=== PATIENT | male | born 1955 | race Caucasian/White ===

== ENCOUNTER 2018-12-15 20:10 | Emergency (ER) | payer SELFPAY ==
[2018-12-15 20:19] VITALS: BP 152/81; PULSE 105; TEMP 98.3; BMI 24.3
--- NOTE | 2018-12-15 20:39 | PDOC ---
History of Present Illness - General Chief Complaint: Laceration Stated Complaint: Blood Pressure Problem/FINGER BLEDING NON STOP Time Seen by Provider: 12/15/18 20:23 History Source: Patient - History of Present Illness Timing/Duration: reports: just prior to arrival Location: reports: extremities Past History - Past Medical History Allergies/Adverse Reactions: Allergies Allergy/AdvReac Type Severity Reaction Status Date / Time No Known Allergies Allergy Verified 12/15/18 20:20 COPD: No Diabetes: Yes HTN: Yes Hypercholesterolemia: Yes - Suicide/Smoking/Psychosocial Hx Smoking History: Never smoked Review of Systems - Review of Systems Neurological: No: Numbness *Physical Exam - Vital Signs Last Vital Signs Temp Pulse Resp BP Pulse Ox 98.3 F 105 H 18 152/81 98 12/15/18 20:15 12/15/18 20:15 12/15/18 20:15 12/15/18 20:15 12/15/18 20:15 - Physical Exam General Appearance: Yes: Appropriately Dressed. No: Apparent Distress HEENT: positive: Normal Voice Neck: positive: Supple Respiratory/Chest: negative: Respiratory Distress Extremity: positive: Other (~0.5 cm avulsion lac to distal phalanx of L 5th finger) Integumentary: positive: Dry, Warm Neurologic: positive: Fully Oriented, Alert, Normal Mood/Affect Moderate Sedation - Procedure Monitoring Vital Signs: Procedure Monitoring Vital Signs Temperature 98.3 F 12/15/18 20:15 Pulse Rate 105 H 12/15/18 20:15 Respiratory Rate 18 12/15/18 20:15 Blood Pressure 152/81 12/15/18 20:15 O2 Sat by Pulse Oximetry (%) 98 12/15/18 20:15 Medical Decision Making - Medical Decision Making 12/15/18 20:34 63-year-old male, history of ygn-[id number]-ykhlnatgr diabetes, here with laceration to L 4th digit while handling knife tonight. No sensory changes. Needs tetanus vaccine See exam Avulsion lac to finger -local wound care and compression dressing -tetanus updated -wound check as needed in 2 days *DC/Admit/Observation/Transfer Diagnosis at time of Disposition: Finger laceration Qualifiers: Encounter type: initial encounter Finger: little finger Damage to nail status: without damage Foreign body presence: without foreign body Laterality: left Qualified Code(s): S61.217A - Laceration without foreign body of left little finger without damage to nail, initial encounter - Discharge Dispostion Disposition: HOME Condition at time of disposition: Good - Referrals - Patient Instructions Printed Discharge Instructions: DI for Minor Laceration Additional Instructions: Tiene un tipo de laceracin en la que se sanches eliminado narayan parte de la piel. Carmen tipo de laceracin tanja por s solo. Mientras tanto, se coloc un vendaje para controlar el sangrado. Despus de aproximadamente 24 horas, puede quitar el apsito y reemplazarlo con narayan curita. Regrese a la matt de emergencias para revisar la herida si nota enrojecimiento en la herida, pus o fiebre. Te dieron narayan vacuna hoy Print Language: DANISH - Post Discharge Activity
[2018-12-15] MEDS ORDERED: DIPHTH,PERTUSS(ACELL),TET 0.5 ML DISP.SYRIN IM ONE ×2 (20:40→21:06)
== END 2018-12-15 21:28 | disposition home or self-care (01) ==
LOC: JERFT 20:10
PROC: 3E0234Z Introduction of Serum, Toxoid and Vaccine into Muscle, Percutaneous Approach (ICD-10-PCS; principal; 2018-12-15)
DX: S61.217A Laceration without foreign body of left little finger without damage to nail, initial encounter (principal); W26.0XXA Contact with knife, initial encounter; Y93.89 Activity, other specified; Y92.018 Other place in single-family (private) house as the place of occurrence of the external cause; Y99.8 Other external cause status; E11.9 Type 2 diabetes mellitus without complications; Z79.84 Long term (current) use of oral hypoglycemic drugs
CPT/HCPCS: 90715; 99281-25

== ENCOUNTER 2019-08-10 06:04 | Emergency (ER) | payer OTHER ==
[2019-08-10 07:30] VITALS: TEMP 98.1; BMI 27.9
--- NOTE | 2019-08-10 07:36 | PDOC ---
History of Present Illness - General Chief Complaint: Diarrhea Stated Complaint: ABD PAIN, Time Seen by Provider: 08/10/19 07:32 History Source: Patient - History of Present Illness Initial Comments: 08/10/19 10:14 Mr. Cohen is a 64 y/o English speaking M with hx DM, HTN presenting with one day of abdominal pain. He reports that yesterday at approx 10pm he ate fish for dinner, and shortly after developed severe 8/10 upper abdominal pain and chills. He reports becoming nauseated, no vomiting. He reports approx 6x non bloody watery diarrhea. He did not take any over the counter medications at home to control his symptoms. He denies any sick contacts, or recent travel. PCP: Dr. Sj Farrell Past History - Travel Traveled outside of the country in the last 30 days: No - Past Medical History Allergies/Adverse Reactions: Allergies Allergy/AdvReac Type Severity Reaction Status Date / Time No Known Allergies Allergy Verified 08/10/19 07:38 Home Medications: Ambulatory Orders Metformin HCl [Glucophage] 1,000 mg PO DAILY 08/10/19 COPD: No Diabetes: Yes HTN: Yes Hypercholesterolemia: Yes - Surgical History GI Surgery: Yes - Suicide/Smoking/Psychosocial Hx Smoking History: Never smoked Hx Alcohol Use: No Drug/Substance Use Hx: No Review of Systems - Review of Systems Able to Perform ROS?: Yes Comments:: 08/10/19 11:01 ROS: GENERAL/CONSTITUTIONAL: Chills. No fever. No weakness. HEAD, EYES, EARS, NOSE AND THROAT: No change in vision. No ear pain or discharge. No sore throat. CARDIOVASCULAR: No chest pain or shortness of breath RESPIRATORY: No cough, wheezing, or hemoptysis. GASTROINTESTINAL: Nausea, diarrhea. No vomiting, constipation. GENITOURINARY: No dysuria, frequency, or change in urination. MUSCULOSKELETAL: No joint or muscle swelling or pain. No neck or back pain. SKIN: No rash NEUROLOGIC: No headache, vertigo, loss of consciousness, or change in strength/ sensation. ENDOCRINE: No increased thirst. No abnormal weight change HEMATOLOGIC/LYMPHATIC: No anemia, easy bleeding, or history of blood clots. ALLERGIC/IMMUNOLOGIC: No hives or skin allergy. *Physical Exam - Vital Signs Last Vital Signs Temp Pulse Resp BP Pulse Ox 98.1 F 75 19 177/82 H 100 08/10/19 06:30 08/10/19 06:30 08/10/19 06:30 08/10/19 06:30 08/10/19 06:30 - Physical Exam Comments: 08/10/19 11:04 PE: GENERAL: Awake, alert, and fully oriented, mild distress HEAD: No signs of trauma, normocephalic, atraumatic EYES: PERRLA, EOMI, sclera anicteric, conjunctiva clear ENT: Auricles normal inspection, hearing grossly normal, nares patent, oropharynx clear without exudates. Moist mucosa NECK: Normal ROM, supple, no lymphadenopathy, JVD, or masses LUNGS: No distress, speaks full sentences, clear to auscultation bilaterally HEART: Regular rate and rhythm, normal S1 and S2, no murmurs, rubs or gallops, peripheral pulses normal and equal bilaterally. ABDOMEN: Tenderness to palpation throughout 4 quadrants, epigastric region. LUQ > RUQ. Soft, normoactive bowel sounds. No guarding, no rebound. No masses EXTREMITIES : Normal inspection, Normal range of motion, no edema. No clubbing or cyanosis NEUROLOGICAL: Cranial nerves II through XII grossly intact. Normal speech, normal gait, no focal sensorimotor deficits SKIN: Warm, Dry, normal turgor, no rashes or lesions noted ED Treatment Course - LABORATORY CBC & Chemistry Diagram: 08/10/19 08:00 08/10/19 08:00 Medical Decision Making - Medical Decision Making 08/10/19 11:06 64M with acute onset nausea, diarrhea after eating fish for dinner last night, most likely representing acute food poisoning. Differential also includes necrotic bowel which cannot yet be ruled out. Plan: CBC CMP Lipase CT abdomen/pelvis with contrast Pepcid [facility] for pain control Dispo: Likely discharge --- On reassessment, he reports improvement of symptoms with some ongoing pain. Plan for IV toradol for pain control. 08/10/19 11:13 CT A/P negative for acute process, notable for diverticulosis. Plan for discharge home with PCP follow up. *DC/Admit/Observation/Transfer Diagnosis at time of Disposition: Diarrhea Qualifiers: Diarrhea type: unspecified type Qualified Code(s): R19.7 - Diarrhea, unspecified - Discharge Dispostion Disposition: HOME Condition at time of disposition: Stable Decision to Admit order: No - Referrals Referrals: Sj Farrell MD [Primary Care Provider] - - Patient Instructions Printed Discharge Instructions: DI for Diarrhea and Traveler's Diarrhea -- Adult Additional Instructions: Usted fue evaluado por dolor abdominal y diarrhea. Nosotros evaluamos a bere niveles de martha, y tomamos narayan tomografia de harrison abdomen. Todo resulto normal - no vemos evidencia de infeccion bacterial. Harrison tomografia fue notable por diverticulosis - narayan condicion donde harrison intestino tiene pequenos bolsas. No parece que tienes infeccion de estas bolsas en siria momento. Por favor ve a harrison doctor de cabezera, y traiga a los resultados a harrison proxima trevor - en la semana que viene o lo mas pronto posible. Print Language: WOLOF - Post Discharge Activity
--- NOTE | 2019-08-10 07:43 | PDOC ---
Attending Attestation - Resident Resident Name: Girma Osborne - ED Attending Attestation I have performed the following: I have examined & evaluated the patient, The case was reviewed & discussed with the resident, I agree w/resident's findings & plan, Exceptions are as noted - HPI HPI: 08/10/19 07:52 64 yo M h/o HTN, HLD, DM presenting with abdominal pain and diarrhea s/p eating salt fish yesterday morning He has had multiple episodes of diarrhea, he estimated 6+ (non bloody, non mucoid) Pt has also noted pain which is rated 9/10 in the upper abdomen, non radiating No prior episodes like this No recent travel no ill contacts No fevers or chills Absolutely no vomiting 08/10/19 08:00 - Physicial Exam PE: 08/10/19 07:43 GENERAL: The patient is in no acute distress. ENT: Ears normal, nares patent, oropharynx clear without exudates. Dry mucous membranes. NECK: Normal range of motion, supple LUNGS: Breath sounds equal, clear to auscultation bilaterally. No wheezes, and no crackles. HEART:Regular rate and rhythm, normal S1 and S2 without murmur, rub or gallop. ABDOMEN: Soft, epigastric, RUQ tenderness to palpation normoactive bowel sounds. EXTREMITIES: Normal range of motion, no edema. NEUROLOGICAL: Cranial nerves II through XII grossly intact. Normal speech. No focal neurological deficits. SKIN: Warm, Dry, normal turgor, no rashes or lesions noted. 08/10/19 08:01 - Medical Decision Making 08/10/19 08:01 64 yo M presenting with a complaint of diarrhea s/p eating salted fish yesterday No sytemic signs of illness DD: cholelithiasis, colitis, gastritis 08/10/19 08:03 Will do Labs IVF Pepcid Re assess 08/10/19 09:04 Twelve-lead EKG was performed and reviewed by me. There is normal sinus rhythm with a normal rate. The axis is normal. The intervals are normal. There are no ST or T wave abnormalities. Impression: Normal twelve-lead EKG 08/10/19 09:06 Laboratory Tests 08/10/19 08/10/19 07:26 08:00 Sodium 133 L Potassium 4.9 Chloride 101 Carbon Dioxide 23 BUN 12.2 Creatinine 1.1 Random Glucose 175 H Magnesium 1.3 L Lipase 131 08/10/19 11:12 CT: Dverticulosis, Liver, GB,, CBD nml, fat containing inguinal hernia will discharge to home Follow up with PMD BRAT diet Immodium prn
[2019-08-10] MEDS ORDERED: ACETAMINOPHEN 1000 MG/100 ML VIAL (NON FORMULARY) IVPB ONE (07:55)
[2019-08-10] MEDS ORDERED: FAMOTIDINE 20 MG/50 ML IVPB 20 MG/50 ML MG IVPB ONE ×2 (07:55→08:31)
[2019-08-10] MEDS ORDERED: SODIUM CHLORIDE 1,000 ML IV STA (08:02)
[2019-08-10 08:18] LABS: HEMATOCRIT 37.1 % (35.4-49); HEMOGLOBIN 12.4 GM/dL (11.7-16.9); MCH 29.5 pg (25.7-33.7); MCHC 33.3 g/dl (32.0-35.9); MEAN CELL VOLUME 88.6 fl (80-96); MEAN PLT VOLUME 9.1 fl (7.5-11.1); PLATELET COUNT 300 K/MM3 (134-434); RBC 4.19 M/mm3 (4.00-5.60); RDW 14.2 % (11.9-15.9); WHITE BLOOD COUNT 5.4 K/mm3 (4.0-10.0)
[2019-08-10] MEDS ORDERED: ACETAMINOPHEN INJECTION 100 ML IVPB ONE (08:31)
[2019-08-10 08:37] LABS: BILIRUBIN,TOTAL 0.5 mg/dL (0.2-1); BLOOD UREA NITROGEN 12.2 mg/dL (7-18); CALCIUM 9.5 mg/dL (8.5-10.1); CREATININE 1.1 mg/dL (0.55-1.3); MAGNESIUM 1.3 mg/dL (1.8-2.4); POTASSIUM 4.9 mmol/L (3.5-5.1); TOT PROT 7.5 g/dl (6.4-8.2)
[2019-08-10] MEDS ORDERED: KETOROLAC TROMETHAMINE 30 MG/1 ML VIAL IVPUSH ONE (10:56)
[2019-08-10] MEDS ORDERED: KETOROLAC TROMETHAMINE 30 MG/1 ML VIAL ONE (11:14)
[2019-08-10 11:47] VITALS: BP 148/83; PULSE 87
--- NOTE | 2019-08-10 23:42 | EKG ---
Test Reason : Blood Pressure : / mmHG Vent. Rate : 079 BPM Atrial Rate : 079 BPM P-R Int : 158 ms QRS Dur : 080 ms QT Int : 376 ms P-R-T Axes : 057 049 047 degrees QTc Int : 431 ms NORMAL SINUS RHYTHM NORMAL ECG NO PREVIOUS ECGS AVAILABLE Confirmed by SREEKANTH LUNDBERG MD ([id number]) on 08/10/2019 11:41:52 PM Referred By: Confirmed By:SREEKANTH LUNDBERG MD
== END 2019-08-10 11:47 | disposition home or self-care (01) ==
LOC: JER 06:04
PROC: 3E0337Z Introduction of Electrolytic and Water Balance Substance into Peripheral Vein, Percutaneous Approach (ICD-10-PCS; principal; 2019-08-10)
PROC: 3E033GC Introduction of Other Therapeutic Substance into Peripheral Vein, Percutaneous Approach (ICD-10-PCS; 2019-08-10)
PROC: 3E0333Z Introduction of Anti-inflammatory into Peripheral Vein, Percutaneous Approach (ICD-10-PCS; 2019-08-10)
PROC: 3E033NZ Introduction of Analgesics, Hypnotics, Sedatives into Peripheral Vein, Percutaneous Approach (ICD-10-PCS; 2019-08-10)
DX: R19.7 Diarrhea, unspecified (principal)
CPT/HCPCS: 36415; 74177-TC; 80053; 83690; 83735; 85027; 93005; 93010; 96361; 96365; 96375; 99283-25; J0131; J7030

== ENCOUNTER 2019-09-16 12:38 | Observation (INO) | payer OTHER ==
[2019-09-16] MEDS ORDERED: morphine CARPU-JECT 4 MG/1 ML DISP.SYRIN IVPUSH ONE (13:22)
[2019-09-16] MEDS ORDERED: MORPHINE SULFATE 2 MG/ML VIAL ONE (13:24)
--- NOTE | 2019-09-16 13:28 | PDOC ---
History of Present Illness - General Chief Complaint: Weakness Stated Complaint: WEAKNESS Time Seen by Provider: 09/16/19 12:48 History Source: Patient - History of Present Illness Initial Comments: 09/16/19 13:23 64 yo M PMH HTN, HLD, DM presents to ED with chest pain and back pain that began last night. Pt states chest pain is pleuritic and exertional. Pt states pain is 5/10. Pt states it is more left sided but does not radiate anywhere. Sitting forward helps the pain. pt states he also feels dizzy, weak, headache, diaphoretic. denies n/v. the lumbar back pain also began at the same time last night. pt states he has been going to therapy for his back but has not had this pain before. pt states he is compliant with his medications. pt denies smoking or alcohol use. Past History - Past Medical History Allergies/Adverse Reactions: Allergies Allergy/AdvReac Type Severity Reaction Status Date / Time No Known Allergies Allergy Verified 08/10/19 07:38 Home Medications: Ambulatory Orders Metformin HCl [Glucophage] 1,000 mg PO DAILY 08/10/19 COPD: No Diabetes: Yes HTN: Yes Hypercholesterolemia: Yes - Surgical History GI Surgery: Yes - Psycho Social/Smoking Cessation Hx Smoking History: Never smoked Hx Alcohol Use: No Drug/Substance Use Hx: No Review of Systems - Review of Systems Able to Perform ROS?: Yes Constitutional: Yes: Diaphoresis Respiratory: Yes: Shortness of Breath, SOB with Exertion. No: Cough Cardiac (ROS): Yes: Chest Pain, Lightheadedness ABD/GI: No: Abdominal Distended, Constipated, Diarrhea, Nausea, Vomiting, Abdominal cramping Neurological: Yes: Headache, Unsteady Gait, Dizziness *Physical Exam - Vital Signs Last Vital Signs Temp Pulse Resp BP Pulse Ox 97.4 F L 85 16 161/78 99 09/16/19 12:55 09/16/19 12:55 09/16/19 12:55 09/16/19 12:55 09/16/19 12:55 - Physical Exam General Appearance: Yes: Nourished, Appropriately Dressed Respiratory/Chest: positive: Lungs Clear, Normal Breath Sounds. negative: Respiratory Distress, Accessory Muscle Use Cardiovascular: positive: Regular Rhythm, Regular Rate, S1, S2, JVD Gastrointestinal/Abdominal: positive: Normal Bowel Sounds, Soft. negative: Tender, Organomegaly, Increased Bowel Sounds, Guarding, Rebound Musculoskeletal: positive: Normal Inspection. negative: Vertebral Tenderness Extremity: positive: Calf Tenderness (L LE) Neurologic: positive: Fully Oriented ED Treatment Course - LABORATORY CBC & Chemistry Diagram: 09/16/19 13:22 09/16/19 13:22 - RADIOLOGY Radiology Studies Ordered: Category Date Time Status CHEST X-RAY PORTABLE* [RAD] Stat Radiology 09/16/19 13:14 Ordered Medical Decision Making - Medical Decision Making K 5.2, Mg 09/16/19 13:53 64 yo M presenting with CP and lumbar back pain since last night -r/o ACS -r/o AAA -r/o lumbar herniation -EKG, CXR -cardiac profile -UA -Cbc, CMP 09/16/19 13:54 -EKG reviewed, NSR, peaked T waves -morphine 2mg 09/16/19 13:55 -lumbar XR for lumbar pain -lidocaine patch 09/16/19 13:56 -robaxin and tylenol for pain mgmt 09/16/19 14:21 CMP reviewed . hyperkalemia K 5.2 , Mg 1.3 -Mg repleted. 2 mg IV MgSO4 -IV NS 09/16/19 18:28 ADMIT TO TELE OBS -pt reports feeling better Discharge - Discharge Information Problems reviewed: Yes Clinical Impression/Diagnosis: Chest pain, Back pain Condition: Fair - Admission Yes - Follow up/Referral - Patient Discharge Instructions - Post Discharge Activity
[2019-09-16 13:30] LABS: BASO % 1.2 % (0-2.0); EOS % 6.5 % (0-4.5); HEMATOCRIT 37.5 % (35.4-49); HEMOGLOBIN 12.4 GM/dL (11.7-16.9); LYMPH % 43.2 % (8-40); MCH 29.4 pg (25.7-33.7); MEAN CELL VOLUME 89.1 fl (80-96); MEAN PLT VOLUME 8.7 fl (7.5-11.1); MONO % 6.9 % (3.8-10.2); NEUT % 42.2 % (42.8-82.8); PLATELET COUNT 291 K/MM3 (134-434); RBC 4.21 M/mm3 (4.00-5.60); RDW 13.8 % (11.9-15.9); WHITE BLOOD COUNT 4.4 K/mm3 (4.0-10.0)
[2019-09-16 13:38] LABS: INR 0.93 (0.83-1.09)
[2019-09-16 13:40] LABS: ACTIVATED PTT 29.8 SECONDS (25.2-36.5)
[2019-09-16] MEDS ORDERED: METHOCARBAMOL 500 MG TABLET PO ONE (13:50)
[2019-09-16] MEDS ORDERED: ACETAMINOPHEN 1000 MG/100 ML VIAL (NON FORMULARY) IVPB ONE (13:51)
[2019-09-16] MEDS ORDERED: LIDOCAINE 5% TOPICAL PATCH TP ONE (13:52)
[2019-09-16] MEDS ORDERED: METHOCARBAMOL 500 MG TABLET ONE (13:54)
[2019-09-16] MEDS ORDERED: LIDOCAINE 5% TOPICAL PATCH ONE ×2 (13:54→13:55)
[2019-09-16] MEDS ORDERED: ACETAMINOPHEN INJECTION 100 ML IVPB ONE (13:54)
[2019-09-16 14:17] LABS: ALBUMIN 3.8 g/dl (3.4-5.0); ALK PHOS 67 U/L (45-117); ANION GAP 6 MMOL/L (8-16); BILIRUBIN,TOTAL 0.4 mg/dL (0.2-1); BLOOD UREA NITROGEN 15.6 mg/dL (7-18); CALCIUM 9.4 mg/dL (8.5-10.1); CHLORIDE 106 mmol/L (98-107); CO2 26 mmol/L (21-32); CREATININE 1.2 mg/dL (0.55-1.3); GLUCOSE,RANDOM 125 mg/dL (74-106); MAGNESIUM 1.3 mg/dL (1.8-2.4); PHOSPHOROUS 3.1 mg/dL (2.5-4.9); POTASSIUM 5.2 mmol/L (3.5-5.1); SGOT/AST 16 U/L (15-37); SGPT/ALT 15 U/L (13-61); SODIUM 138 mmol/L (136-145)
--- NOTE | 2019-09-16 14:19 | PDOC ---
Documentation entered by Sonia House SCRIBE, acting as scribe for Cathie Mir DO. Cathie Mir DO: This documentation has been prepared by the Harsh keller Sammi, SCRIBE, under my direction and personally reviewed by me in its entirety. I confirm that the documentation accurately reflects all work, treatment, procedures, and medical decision making performed by me. Attending Attestation - Resident Resident Name: Helen Zeng - ED Attending Attestation I have performed the following: I have examined & evaluated the patient, The case was reviewed & discussed with the resident, I agree w/resident's findings & plan, Exceptions are as noted - HPI HPI: 09/16/19 13:50 The patient is a 64 year old male who presents to the emergency department for evaluation of constant chest pain since 12am last night with associated SOB, dizziness, lower extremity weakness, and right leg pain. He notes the chest pain is exacerbated when lying down and that when trying to go to the bathroom this morning his legs felt very weak. He also complains of neck and back pain sustained from a fall ~2 years ago and notes the pain has been worsening since participating in physical therapy recently. Denies recent travel or sick contact. Denies fever, chills, nausea, vomiting, diarrhea and constipation. Denies dysuria, frequency, urgency and hematuria. PMH: HTN, HLD, DM PCP: Sj Farrell - Physicial Exam PE: 09/16/19 13:55 GENERAL: Awake, alert, and fully oriented, in no acute distress NECK: Supple, no lymphadenopathy, JVD, or masses LUNGS: Breath sounds equal, clear to auscultation bilaterally. No wheezes, and no crackles HEART: Regular rate and rhythm, normal S1 and S2, no murmurs, rubs or gallops ABDOMEN: Soft, nontender, normoactive bowel sounds. No guarding, no rebound. No masses BACK: + left paraspinal tenderness +midline L spine tenderness. no step off or deformities CTL. EXTREMITIES: +left straight leg raise NEUROLOGICAL: Motor strength 5/5. Cranial nerves II through XII grossly intact. Normal speech. SKIN: Warm, Dry, normal turgor, no rashes or lesions noted. - Medical Decision Making 09/16/19 14:17 I, Dr. Cathie Mir, DO, attest that this document has been prepared under my direction and personally reviewed by me in its entirety. I further attest, that it accurately reflects all work, treatment, procedures and medical decision -making performed by me. a/p: 64yo male with cp and back pain -cp started last night - anterior chest, radiates to upper L shoulder -no assoc n/v/d -also with back pain - in PT and has had worsening pain since PT -L paraspinal ttp -lbp and ttp lumbar -will send for xray, ua -will send trop, ekg, cxr -will medicate for pain -will monitor and reassess 09/16/19 14:20 mag 1.3 trop neg 09/16/19 14:20 pt will need tele obs for acs eval 09/16/19 14:21 cxr clear 09/16/19 15:51 no acute finding on xray call placed to dr. kim for cp obs 09/16/19 15:[address] Kim who accepts pt to obs Discharge - Discharge Information Problems reviewed: Yes Clinical Impression/Diagnosis: Chest pain, Back pain Condition: Fair - Admission Yes - Follow up/Referral Referrals: Sj Farrell MD [Primary Care Provider] - - Patient Discharge Instructions - Post Discharge Activity Heart Score/ECG Review - History History: Moderately suspicious - Electrocardiogram EKG: Normal - Age Age: 45-65 - Risk Factors Risk Factors Heart Score: Yes Hx Hypercholesterolemia, Yes Hx Hypertension, Yes Hx Diabetes Based on the list above the patient has:: >/=3 risk factors or Hx atherosclerotic disease - Troponin Troponin: </= normal limit - Score Heart Score - Total: 4 - ECG Intrepretation Comment:: 09/16/19 14:18 sinus at 76, nl axis, nl interval, no acute st/t wave findings
[2019-09-16] MEDS ORDERED: MAGNESIUM SULF 50% (8.12 MEQ/2 ML-1 GM VIAL) IVPB ONE (14:20)
[2019-09-16] MEDS ORDERED: SODIUM CHLORIDE 1,000 ML IV SCH (14:30)
[2019-09-16] MEDS ORDERED: MAGNESIUM 1GM/D5W - 2 GM/200 ML IVPB IVPB ONE (14:35)
[2019-09-16 15:13] LABS: URINE APPEARANCE CLEAR; URINE BILIRUBIN NEGATIVE (NEGATIVE); URINE COLOR YELLOW; URINE GLUCOSE (UA) TRACE (NEGATIVE); URINE KETONE NEGATIVE (NEGATIVE); URINE LEUK ESTERASE NEGATIVE (NEGATIVE); URINE NITRITE NEGATIVE (NEGATIVE); URINE PROTEIN NEGATIVE (NEGATIVE); URINE UROBILINOGEN 0.2 mg/dL (0.2-1.0)
--- NOTE | 2019-09-16 20:31 | HP ---
Admitting History and Physical - Primary Care Physician PCP: Jamari Pierre - Admission History of Present Illness: 64 year old male who presents to the emergency department for evaluation of constant chest pain since 12am last night with associated SOB, dizziness, lower extremity weakness, and right leg pain. He notes the chest pain is exacerbated when lying down and that when trying to go to the bathroom this morning his legs felt very weak. He also complains of neck and back pain sustained from a fall ~2 years ago and notes the pain has been worsening since participating in physical therapy recently. D - Smoking History Smoking history: Never smoked - Alcohol/Substance Use Hx Alcohol Use: No Home Medications - Allergies Allergies/Adverse Reactions: Allergies Allergy/AdvReac Type Severity Reaction Status Date / Time No Known Allergies Allergy Verified 08/10/19 07:38 - Home Medications Home Medications: Ambulatory Orders Metformin HCl [Glucophage] 1,000 mg PO BIDAC 08/10/19 Amlodipine Besylate 5 mg PO DAILY 09/16/19 Aspirin Coated [Ecotrin -] 81 mg PO DAILY 09/16/19 Diazepam [Valium] 5 mg PO PRN PRN 09/16/19 Glipizide 10 mg PO ACBK 09/16/19 Lisinopril [Zestril] 40 mg PO DAILY 09/16/19 Tizanidine HCl 4 mg PO TID 09/16/19 Atorvastatin Ca [Lipitor] 40 mg PO HS #30 tablet 09/17/19 Metoprolol Succinate [Toprol XL -] 25 mg PO DAILY #30 tab.sr.24h 09/17/19 Physical Examination Vital Signs: Vital Signs Temperature 97.4 F L 09/16/19 12:55 Pulse Rate 82 09/16/19 18:12 Respiratory Rate 18 09/16/19 18:12 Blood Pressure 134/84 09/16/19 18:12 O2 Sat by Pulse Oximetry (%) 98 09/16/19 18:12 Constitutional: Yes: No Distress HENT: Yes: Atraumatic Neck: Yes: Supple Cardiovascular: Yes: Regular Rate and Rhythm Respiratory: Yes: CTA Bilaterally Gastrointestinal: Yes: Normal Bowel Sounds Extremities: Yes: WNL Edema: No Neurological: Yes: Alert, Oriented Labs: CBC, BMP 09/16/19 13:22 09/16/19 13:22 Problem List - Problems (1) Back pain Assessment/Plan: prn pain meds Code(s): M54.9 - DORSALGIA, UNSPECIFIED (2) Chest pain Assessment/Plan: tele monitoring fu cardiac profile cardiolgy consult Code(s): R07.9 - CHEST PAIN, UNSPECIFIED Assessment/Plan Laboratory Tests 09/16/19 09/16/19 09/16/19 13:22 13:22 13:22 WBC 4.4 RBC 4.21 Hgb 12.4 Hct 37.5 MCV 89.1 MCH 29.4 MCHC 33.0 RDW 13.8 Plt Count 291 MPV 8.7 Absolute Neuts (auto) 1.8 Neutrophils % 42.2 L Lymphocytes % 43.2 H Monocytes % 6.9 Eosinophils % 6.5 H Basophils % 1.2 Nucleated RBC % 0 PT with INR 11.00 INR 0.93 PTT (Actin FS) 29.8 Sodium 138 Potassium 5.2 H Chloride 106 Carbon Dioxide 26 Anion Gap 6 L BUN 15.6 Creatinine 1.2 Est GFR (CKD-EPI)AfAm 74.14 Est GFR (CKD-EPI)NonAf 63.97 Random Glucose 125 H Calcium 9.4 Phosphorus 3.1 Magnesium 1.3 L Total Bilirubin 0.4 AST 16 ALT 15 Alkaline Phosphatase 67 Creatine Kinase 149 Troponin I < 0.02 Total Protein 7.0 Albumin 3.8 Urine Color Urine Appearance Urine pH Ur Specific Thomson Urine Protein Urine Glucose (UA) Urine Ketones Urine Blood Urine Nitrite Urine Bilirubin Urine Urobilinogen Ur Leukocyte Esterase 09/16/19 09/16/19 14:50 18:45 WBC RBC Hgb Hct MCV MCH MCHC RDW Plt Count MPV Absolute Neuts (auto) Neutrophils % Lymphocytes % Monocytes % Eosinophils % Basophils % Nucleated RBC % PT with INR INR PTT (Actin FS) Sodium Potassium Chloride Carbon Dioxide Anion Gap BUN Creatinine Est GFR (CKD-EPI)AfAm Est GFR (CKD-EPI)NonAf Random Glucose Calcium Phosphorus Magnesium Total Bilirubin AST ALT Alkaline Phosphatase Creatine Kinase Troponin I < 0.02 Total Protein Albumin Urine Color Yellow Urine Appearance Clear Urine pH 7.0 Ur Specific Thomson 1.007 L Urine Protein Negative Urine Glucose (UA) Trace Urine Ketones Negative Urine Blood Negative Urine Nitrite Negative Urine Bilirubin Negative Urine Urobilinogen 0.2 Ur Leukocyte Esterase Negative Active Medications Generic Name Dose Route Start Last Admin Trade Name Freq PRN Reason Stop Dose Admin Sodium Chloride 1,000 mls @ 83 mls/hr 09/16/19 14:30 09/16/19 14:33 Normal Saline - IV 83 mls/hr ASDIR MANN Administration Miscellaneous 1 each 09/16/19 22:00 Lidoderm Patch Removal MC DAILY@2200 MANN Active Medications Generic Name Dose Route Start Last Admin Trade Name Sandy PRN Reason Stop Dose Admin Amlodipine Besylate 5 mg 09/17/19 10:00 09/17/19 14:15 Norvasc - PO 5 mg DAILY MANN Administration Aspirin 81 mg 09/17/19 10:00 09/17/19 14:15 Ecotrin - PO 81 mg DAILY MANN Administration Atorvastatin Calcium 40 mg 09/17/19 22:00 Lipitor - PO HS MANN Glipizide 10 mg 09/17/19 07:00 09/17/19 06:24 Glucotrol - PO 10 mg ACBK MANN Administration Sodium Chloride 1,000 mls @ 83 mls/hr 09/16/19 14:30 09/16/19 14:33 Normal Saline - IV 83 mls/hr ASDIR MANN Administration Lisinopril 40 mg 09/17/19 10:00 09/17/19 14:15 Prinivil PO 40 mg DAILY MANN Administration Metformin HCl 1,000 mg 09/17/19 07:00 09/17/19 06:24 Glucophage - PO 1,000 mg BIDAC MANN Administration Metoprolol Succinate 25 mg 09/17/19 10:00 09/17/19 14:15 Toprol Xl - PO 25 mg DAILY MANN Administration Miscellaneous 1 each 09/16/19 22:00 09/16/19 21:51 Lidoderm Patch Removal MC Not Given DAILY@2200 [facility] Tizanidine HCl 4 mg 09/16/19 22:00 09/17/19 14:17 Tizanidine Hcl PO 4 mg TID MANN Administration
[2019-09-16] MEDS: TIZANIDINE HCL 4 MG TABLET PO SCH (21:48)
[2019-09-16] MEDS ORDERED: LIDOCAINE PATCH REMOVAL MC SCH (22:00)
[2019-09-16 23:53] VITALS: BMI 27.7
[2019-09-17] MEDS: TIZANIDINE HCL 4 MG TABLET PO SCH ×2 (06:24→14:17)
[2019-09-17] MEDS: metFORMIN HCL 500 MG TABLET (FP) PO SCH ×2 (06:24→17:00)
[2019-09-17 06:42] LABS: BASO % 1.1 % (0-2.0); EOS % 6.1 % (0-4.5); HEMATOCRIT 32.4 % (35.4-49); LYMPH % 43.9 % (8-40); MCH 29.9 pg (25.7-33.7); MCHC 33.8 g/dl (32.0-35.9); MEAN CELL VOLUME 88.3 fl (80-96); MONO % 7.9 % (3.8-10.2); PLATELET COUNT 283 K/MM3 (134-434); RBC 3.67 M/mm3 (4.00-5.60); RDW 13.6 % (11.9-15.9)
--- NOTE | 2019-09-17 06:51 | PN ---
Progress Note (short form) - Note Progress Note: Chief Complaint: Events noted, notes reviewed, evaluation of chest discomfort and exertional dyspnea History of Present Illness: See and examined on telemetry. Full consult dictated Medications: Current Medications Amlodipine Besylate (Norvasc -) 5 mg PO DAILY [facility] Aspirin (Ecotrin -) 81 mg PO DAILY [facility] Glipizide (Glucotrol -) 10 mg PO ACBK [facility] Last Admin: 09/17/19 06:24 Dose: 10 mg Sodium Chloride (Normal Saline -) 1,000 mls @ 83 mls/hr IV ASDIR [facility] Last Admin: 09/16/19 14:33 Dose: 83 mls/hr Lisinopril (Prinivil) 40 mg PO DAILY [facility] Metformin HCl (Glucophage -) 1,000 mg PO BIDAC [facility] Last Admin: 09/17/19 06:24 Dose: 1,000 mg Miscellaneous (Lidoderm Patch Removal) 1 each MC DAILY@2200 [facility] Last Admin: 09/16/19 21:51 Dose: Not Given Tizanidine HCl (Tizanidine Hcl) 4 mg PO TID [facility] Last Admin: 09/17/19 06:24 Dose: 4 mg Review of Systems Cardiovascular: As noted above Respiratory: denies: denies: Cough or Sputum Production Gastrointestinal: denies: Nausea, Vomiting, Diarrhea, Constipation but reports vague left lower quadrant Abdominal Discomfort Musculoskeletal: No Symptoms Reported Endocrine: No Symptoms Reported Vital Signs: Last Vital Signs Temp Pulse Resp BP Pulse Ox 98.1 F 66 20 121/71 98 09/17/19 05:50 09/17/19 05:50 09/17/19 05:50 09/17/19 05:50 09/17/19 03:51 Intake & Output 09/14/19 09/15/19 09/16/19 09/17/19 23:59 23:59 23:59 23:59 Intake Total 120 950 Output Total 500 540 Balance -380 410 Weight 172 lb Neck: Supple Negative JVD Respiratory: Clear to auscultation percussion Cardiovascular: S1 S2 Regular Rate Rhythm No Murmurs Gastrointestinal: Soft Benign Normal Bowel Sounds Ext: Negative Edema Intact distal pulses Labs: CBC, BMP 09/17/19 05:35 09/16/19 13:22 Hepatic Panel Total Bilirubin 0.4 mg/dL (0.2-1) 09/16/19 13:22 AST 16 U/L (15-37) 09/16/19 13:22 ALT 15 U/L (13-61) 09/16/19 13:22 Alkaline Phosphatase 67 U/L (45-117) 09/16/19 13:22 Albumin 3.8 g/dl (3.4-5.0) 09/16/19 13:22 INR, PTT INR 0.93 (0.83-1.09) 09/16/19 13:22 Troponin, BNP 09/16/19 09/16/19 09/16/19 13:22 18:45 21:40 Troponin I < 0.02 < 0.02 < 0.02 Assessment/Plan ASSESSMENT: 1. Chest pain syndrome clinical presentation of which is atypical for coronary artery disease angina pectoris but to be excluded 2. Diastolic left ventricular dysfunction to be considered in the differential diagnoses with clinical class 0 [place] [employer] classification left ventricular failure 3. Hypertensive cardiovascular disease 4. [id number] diabetes mellitus 5. Hypercholesterolemia 6. Chronic kidney disease 7. Anemia 8. Overweight PLAN: 1. Recommended addition of beta blockers 2. Continue Norvasc therapy 3. Continue Lisinopril therapy 4. Continue Ecotrin therapy 5. Recommend the addition of statin therapy/obtain lipid profile 6. Echocardiography for evaluation of left ventricular systolic function and valvular function 7. Pharmacologic Lexiscan myocardial perfusion imaging study for evaluation of the above-noted clinical presentation/chest pain syndrome Grant Lux MD
[2019-09-17] MEDS ORDERED: glipiZIDE 10 MG TABLET (FP) PO SCH (07:00)
[2019-09-17] MEDS ORDERED: metoPROLOL SUCCINATE 25 MG TAB.SR.24H (FP) PO SCH (10:00)
[2019-09-17] MEDS ORDERED: LISINOPRIL 20 MG TABLET (FP) PO SCH (10:00)
[2019-09-17] MEDS ORDERED: amLODIPine BESYLATE 5 MG TABLET (FP) PO SCH (10:00)
[2019-09-17] MEDS ORDERED: ASPIRIN COATED 81 MG TABLET.EC PO SCH (10:00)
[2019-09-17] MEDS ORDERED: REGADENOSON 0.4 MG/5 ML PRE-FILLED SYRINGE IVPUSH ONE ×2 (10:26→10:45)
--- NOTE | 2019-09-17 11:06 | EKG ---
Test Reason : Blood Pressure : / mmHG Vent. Rate : 076 BPM Atrial Rate : 076 BPM P-R Int : 150 ms QRS Dur : 082 ms QT Int : 368 ms P-R-T Axes : 057 050 040 degrees QTc Int : 414 ms NORMAL SINUS RHYTHM POSSIBLE LEFT ATRIAL ENLARGEMENT BORDERLINE ECG WHEN COMPARED WITH ECG OF 10-AUG-2019 08:57, NO SIGNIFICANT CHANGE WAS FOUND Confirmed by Adriano Fine MD ([id number]) on 09/17/2019 11:05:32 AM Referred By: Confirmed By:Adriano Fine MD
[2019-09-17 11:15] LABS: ALBUMIN 3.4 g/dl (3.4-5.0); BILIRUBIN,TOTAL 0.4 mg/dL (0.2-1); BLOOD UREA NITROGEN 12.3 mg/dL (7-18); CREATININE 1.1 mg/dL (0.55-1.3); POTASSIUM 4.8 mmol/L (3.5-5.1); TOT PROT 6.1 g/dl (6.4-8.2)
--- NOTE | 2019-09-17 11:26 | CONS ---
DATE OF CONSULTATION: 09/17/2019 REQUESTING PHYSICIAN: Jamari Pierre M.D. CHIEF COMPLAINT: Chest discomfort, cardiovascular evaluation. History was obtained from the patient and from the chart. HISTORY OF PRESENT ILLNESS: A 64-year-old male with known history of hypertensive cardiovascular disease, noninsulin dependent diabetes mellitus, hypercholesterolemia, who denied tobacco abuse, who presented to [facility] for evaluation of chest discomfort which has been noted since last night. Chest discomfort described as sharp pain, left upper pectoral area which is exacerbated by certain movements. Patient denied any associated symptomatology, i.e. diaphoresis. Patient has been reporting dyspnea with mild to moderate physical exertion. Patient denies any orthopnea, paroxysmal nocturnal dyspnea, or peripheral edema. Patient denies any palpitations, dizziness, lightheadedness, or syncope. Patient reports fatigue and tiredness. Patient has been reporting low back discomfort. Patient in addition has been reporting intermittent left lower quadrant abdominal discomfort. Electrocardiogram revealed nonspecific ST segment and T wave abnormality, and cardiac biochemical markers were negative for acute coronary syndrome. PAST MEDICAL HISTORY: Hypertensive cardiovascular disease. Noninsulin dependent diabetes mellitus. Hypercholesterolemia currently on no statin therapy. PAST SURGICAL HISTORY: None. SOCIAL HISTORY: Nonsmoker. FAMILY HISTORY: Positive coronary artery disease. ALLERGIES: None reported. MEDICAL THERAPY: Currently includes Norvasc 5 mg once a day, Ecotrin 80 mg once a day, glipizide 10 mg once a day, lisinopril 40 mg once a day, metformin 1000 mg twice a day, Lidoderm patch to affected area once a day, tizanidine 4 mg 3 times a day. REVIEW OF SYSTEMS: Head and neck: Denies headache, photophobia, blurring of vision. Respiratory: No cough or sputum production. Cardiovascular: As noted above. Gastrointestinal: Denies nausea, vomiting, diarrhea, constipation, but reported right lower quadrant abdominal discomfort. Genitourinary: No symptoms reported. Musculoskeletal: Low back discomfort. PHYSICAL EXAMINATION: Vital signs: Blood pressure is 121/71 mmHg, pulse rate 66 beats per minute. Head/Neck: Pupils equally reactive to light and accommodation. Extraocular muscles are intact. Anicteric sclerae. Negative JVD. No bruit appreciated. Chest: Clear to auscultation and percussion. Cardiovascular: S1, S2 regular. No murmurs, clicks or gallops. Abdomen: Soft, benign. Normoactive bowel sounds. Extremities: Negative edema. Intact distal pulses. No calf tenderness. Electrocardiogram reveals sinus rhythm with nonspecific ST segment and T wave abnormality. CBC revealed white cell count 4.0, hemoglobin 11.0, platelet count 283. Basic metabolic profile revealed sodium 138, potassium 5.2, BUN 15.6, creatinine 1.2, glucose 125. Troponin I levels were noted. ASSESSMENT: 1. Chest pain syndrome, clinical presentation of which is atypical for coronary artery disease, angina pectoris felt to be excluded. 2. Diastolic left ventricular dysfunction to be considered in the differential diagnosis with clinical class 0 [place] [employer] classification left ventricular function. 3. Hypertensive cardiovascular disease. 4. Noninsulin dependent diabetes mellitus. 5. Hypercholesterolemia. 6. Chronic kidney disease. 7. Anemia. 8. Overweight. RECOMMENDATION: 1. I recommend the addition of beta gustabo therapy. 2. Continuation of Norvasc therapy. 3. Continuation of lisinopril therapy. 4. Continuation of Ecotrin therapy. 5. Recommend the addition of statin therapy and obtain lipid profile. 6. Echocardiography for evaluation left ventricular systolic function, valvular function. 7. Pharmacologic Lexiscan myocardial perfusion imaging study for evaluation of the above noted clinical presentation, chest pain syndrome. Thank you for the referral. CARLITOS GOMEZ M.D. LELE/[id number]
--- NOTE | 2019-09-17 11:36 | ECHO ---
Version: 1 Name: KALEY ZALDIVAR Exam: Adult Echocardiogram Study Date: 09/17/2019, 9:52 AM Age: 64 Years MMode/2D Measurements & Calculations IVSd: 0.95 cm LVIDs: 2.34 cm LVIDd: 3.3 cm LVPWd: 0.95 cm LAV (MOD-bp): 54.0 ml LVOT diam: 2.00 cm Ao root diam: 3.2 cm LA dimension: 3.1 cm Doppler Measurements & Calculations MV E max rusty: 69.6 cm/sec Med E/e': 15.5 MV A max rusty: 91.3 cm/sec Med Peak E' Rusty: 4.5 cm/sec MV E/A: 0.76 Lat E/e': 9.2 Lat Peak E' Rusty: 7.6 cm/sec MR max P.3 mmHg Ao max P.4 mmHg Ao V2 max: 135.9 cm/sec PI end-d rusty: 91.2 cm/sec TR max rusty: 255.7 cm/sec TR max P.2 mmHg Left Ventricle The left ventricular size, thickness and function are normal. Ejection Fraction = 65%. The transmitr al spectral Doppler flow pattern is suggestive of impaired LV relaxation. Right Ventricle The right ventricle is normal in size and function. Atria Normal left and right atrial size and function. Mitral Valve The mitral valve is normal in structure and function. There is mild mitral regurgitation. Tricuspid Valve The tricuspid valve is normal in structure and function. There is mild tricuspid regurgitation. Aortic Valve The aortic valve is normal in structure and function. Pulmonic Valve The pulmonic valve is normal in structure and function. Mild pulmonic valvular regurgitation. Great Vessels The aortic root is normal size. Normal aortic arch, descending and ascending aorta. Pericardium/Pleura There is no pericardial effusion. Summary Statements The left ventricular size, thickness and function are normal Ejection Fraction = 65%. The transmitral spectral Doppler flow pattern is suggestive of impaired LV relaxation. The right ventricle is normal in size and function. Normal left and right atrial size and function. The mitral valve is normal in structure and function. There is mild mitral regurgitation. The tricuspid valve is normal in structure and function. There is mild tricuspid regurgitation. The aortic valve is normal in structure and function. The pulmonic valve is normal in structure and function. Mild pulmonic valvular regurgitation. The aortic root is normal size. Normal aortic arch, descending and ascending aorta There is no pericardial effusion. Collins Sanchez 09/17/2019, 10:35 AM Ordering Physician: Jamari Herrera Referring Physician: JAMARI HERRERA Performed By: Haven Bernard
[2019-09-17 16:12] VITALS: BP 154/80; PULSE 76; TEMP 98.5
--- NOTE | 2019-09-17 16:48 | DS ---
Physical Examination Vital Signs: Vital Signs Temperature 98.5 F 09/17/19 14:00 Pulse Rate 76 09/17/19 14:00 Respiratory Rate 18 09/17/19 14:00 Blood Pressure 154/80 09/17/19 14:00 O2 Sat by Pulse Oximetry (%) 98 09/17/19 09:00 HENT: Yes: Atraumatic Neck: Yes: Supple Cardiovascular: Yes: Regular Rate and Rhythm Respiratory: Yes: CTA Bilaterally Gastrointestinal: Yes: Normal Bowel Sounds Extremities: Yes: WNL Edema: No Peripheral Pulses WNL: Yes Neurological: Yes: Alert, Oriented Labs: CBC, BMP 09/17/19 05:35 09/17/19 06:35 Discharge Summary Problems reviewed: Yes Reason For Visit: WEAKNESS Current Active Problems Back pain (Acute) Chest pain (Acute) Condition: Fair - Instructions Diet, Activity, Other Instructions: see radiology asst 2-3 days Referrals: Sj Farrell MD [Primary Care Provider] - Grant Lux MD [Staff Physician] - - Home Medications Comprehensive Discharge Medication List: Ambulatory Orders Metformin HCl [Glucophage] 1,000 mg PO BIDAC 08/10/19 Amlodipine Besylate 5 mg PO DAILY 09/16/19 Aspirin Coated [Ecotrin -] 81 mg PO DAILY 09/16/19 Diazepam [Valium] 5 mg PO PRN PRN 09/16/19 Glipizide 10 mg PO ACBK 09/16/19 Lisinopril [Zestril] 40 mg PO DAILY 09/16/19 Tizanidine HCl 4 mg PO TID 09/16/19 Atorvastatin Ca [Lipitor] 40 mg PO HS #30 tablet 09/17/19 Metoprolol Succinate [Toprol XL -] 25 mg PO DAILY #30 tab.sr.24h 09/17/19 cleared by cardio to be c d/w dr lux
[2019-09-17] MEDS ORDERED: ATORVASTATIN CA 40 MG TABLET (FP) PO SCH (22:00)
== END 2019-09-17 17:41 | disposition home or self-care (01) ==
LOC: JER 12:38 → UNDOADMOB 15:54 → JERBED 15:54 → J4W 20:13 → INTOOBSV 20:31 → OBSVTOIN 20:31 → JERBED 09-17 11:45 → J4W 09-17 11:45
PROVIDERS: ADMIT Internal Medicine; ATTEND Internal Medicine
PROC: 3E033NZ Introduction of Analgesics, Hypnotics, Sedatives into Peripheral Vein, Percutaneous Approach (ICD-10-PCS; principal; 2019-09-17)
PROC: 3E0337Z Introduction of Electrolytic and Water Balance Substance into Peripheral Vein, Percutaneous Approach (ICD-10-PCS; 2019-09-17)
PROC: 3E033GC Introduction of Other Therapeutic Substance into Peripheral Vein, Percutaneous Approach (ICD-10-PCS; 2019-09-17)
DX: R07.89 Other chest pain (principal); R53.1 Weakness; E11.22 Type 2 diabetes mellitus with diabetic chronic kidney disease; I13.10 Hypertensive heart and chronic kidney disease without heart failure, with stage 1 through stage 4 chronic kidney disease, or unspecified chronic kidney disease; I11.9 Hypertensive heart disease without heart failure; N18.9 Chronic kidney disease, unspecified; Z79.84 Long term (current) use of oral hypoglycemic drugs; E78.5 Hyperlipidemia, unspecified; D64.9 Anemia, unspecified; M54.5 Low back pain; E66.3 Overweight; Z68.27 Body mass index [BMI] 27.0-27.9, adult; Z82.49 Family history of ischemic heart disease and other diseases of the circulatory system; Z79.82 Long term (current) use of aspirin
CPT/HCPCS: 36415; 71045-TC-FY; 72100-TC-FY; 78452-TC; 80053; 80061; 81003; 82550; 82962; 83721; 83735; 84100; 84484; 85025; 85610; 85730; 93005; 93010; 93017; 93306-TC; 96374; 96375; 99282-25; A9502; G0378; J0131; J2785; J7030